=== PATIENT | male | born 1980 | race Caucasian/White ===

== ENCOUNTER 2019-01-14 05:45 | Day surgery (SDC) | payer OTHER ==
[~2019-01-14] VITALS: Ht 180.3 cm; Wt 91.6 kg
--- NOTE | ~2019-01-14 | OR ---
[facility] [address] [place] [address] Draft DATE OF OPERATION: 01/14/2019 SURGEON: Jaylen Barksdale MD PREOPERATIVE DIAGNOSIS: Frozen shoulder, right. POSTOPERATIVE DIAGNOSIS: Frozen shoulder, right. PROCEDURE: Manipulation, right shoulder. ANESTHESIA: Supraclavicular block with sedation. SPECIMENS AND COMPLICATIONS: There were no specimens or complications. BLOOD LOSS: There was no blood loss. WHAT WAS DONE: After a block was placed and the patient gently sedated, the right shoulder was gently manipulated into flexion, abduction, and external rotation. Full range of motion was rather easily regained. The anterior shoulder was then prepped and injected with 8 mL of 1% plain Xylocaine and 2 mL of Depo-Medrol, which he tolerated well. The patient was left in Day Surgery to be recovered by the staff. Jaylen Barksdale MD WFB/MODL /[id number] PATIENT NAME: KOSTA KERN OPERATIVE REPORT DATE OF : 80 REPORT #: [id number] PHYSICIAN: JAYLEN BARKSDALE MD PCP: SANUDRA ANN MD REPORT IS CONFIDENTIAL AND NOT TO BE RELEASED WITHOUT AUTHORIZATION [address] [place], [place] [address] Draft Copies: ~ PATIENT NAME: KOSTA KERN OPERATIVE REPORT DATE OF : 80 REPORT #: [id number] PHYSICIAN: JAYLEN BARKSDALE MD PCP: SAUNDRA ANN MD REPORT IS CONFIDENTIAL AND NOT TO BE RELEASED WITHOUT AUTHORIZATION
[~2019-01-14 05:45] MED LIST: CELEXA40 MG PO; HYDROCODON-ACE1 EA10 PO; HYDROXYZINE HCL50 MG PO; MINIPRESS2 MG PO; MOTRIN IB200 MG PO; OMEPRAZOLE20 MG PO; THEO-24300 MG PO
[2019-01-14] MEDS ORDERED: ULTRAM50 MG PO (06:25)
[2019-01-14] MEDS ORDERED: CYMBALTA60 MG PO (06:27)
[2019-01-14] MEDS ORDERED: PAMELOR50 MG (06:27)
[2019-01-14] MEDS ORDERED: PAMELOR50 MG PO (06:28)
[2019-01-14] MEDS ORDERED: CAPZASIN QUIC42.5 GM TOP (06:30)
--- NOTE | 2019-01-14 07:16 | NUR ---
01/14/19 0716 Casandra Cortes SN 0711- PT BEING RECOVERED IN RM 11. RESPS EVEN AND UNLABORED. 02 SAT HIGH 90'S ON 8 L OF 02 BEING DELIEVERED VIA MASK. PT AUDILBLY SNORING, BUT WHEN STIMULLATED WITH VOICE OR TOUCH, PT IS ABLE TO WAKE HIMSELF AND RESPOND TO QUESTIONS FROM STAFF. PT PT DENIES PAIN NAUSEA AND DIZZINESS AT THIS TIME.
== END 2019-01-14 07:50 | disposition home or self-care (01) ==
LOC: OPS 05:45 → DS 05:45 → OPS 06:45 → DS 08:15
PROVIDERS: Orthopaedic Surgery
PROC: 3E0U3BZ Introduction of Anesthetic Agent into Joints, Percutaneous Approach (ICD-10-PCS; 2019-01-14)
PROC: 3E0U33Z Introduction of Anti-inflammatory into Joints, Percutaneous Approach (ICD-10-PCS; 2019-01-14)
PROC: 0RNJXZZ Release Right Shoulder Joint, External Approach (ICD-10-PCS; principal; 2019-01-14 06:45)
DX: M75.01 Adhesive capsulitis of right shoulder (principal); J45.909 Unspecified asthma, uncomplicated; K21.9 Gastro-esophageal reflux disease without esophagitis; Z79.899 Other long term (current) drug therapy
CPT/HCPCS: 64415; 76942; 99156; J1100; J2250; J2704; J2795; J3010; J3301; J7120